=== PATIENT | male | born 1965 | race Caucasian/White ===

== ENCOUNTER → 2022-10-13 | Outpatient (CLI) | payer BC ==
--- NOTE | 2022-10-13 14:06 | Diagnostic Imaging Report ---
INDICATION: Bilateral wrist pain AP, oblique, and lateral views of both wrists are obtained. 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 There is moderate degenerative change of the 1st carpal metacarpal joint. There is some degenerative change of the radiocarpal joint and radioulnar joint. On the right side, there is degenerative change of the triscaphe joint, less severe than on the left. There is also some degenerative change of the radiocarpal joint and radioulnar joint. There are cystic degenerative changes in the lunate and triquetrum on the right side and of the lunate on the left side. IMPRESSION: Multifocal chronic changes as described above with no acute appearing abnormality. Dictated by: Dictated on workstation # [id number]
== END ==
LOC: ORTHO 08:46
PROVIDERS: ATTEND Orthopaedic Surgery
DX: M19.032 Primary osteoarthritis, left wrist (principal); M19.031 Primary osteoarthritis, right wrist
CPT/HCPCS: 73110; G0463; 99203